=== PATIENT | male | born 1940 | race Caucasian/White ===

== ENCOUNTER 2016-11-04 16:32 | Emergency (ER) | payer MEDICARE ==
[~2016-11-04] VITALS: Ht 180.3 cm; Wt 88.6 kg
[~2016-11-04 16:32] MED LIST: ASCO100089 PO; ASPI-973 PO; CALC-1034 PO; CHOL200047 PO; FINA5TAB9 PO; GLUC-123 PO; LISI-567 PO; LOVA40TA PO; OMEG1CAP25 PO; PROP20TA5 PO; SAW/1TAB2 PO; TERA5CAP6 PO; VANC1VIA13 PO; WARF5TAB9
[2016-11-04 16:34] VITALS: BP 173/116; PULSE 80; RESP 16; O2SAT 98
--- NOTE | 2016-11-04 16:45 | ED.REPORT ---
HPI-Trauma Minor / Fall Date of Service Nov 04, 2016 ED Provider: Nicola Meade MD A 75 year old male on Coumadin with a history of CVA, hypertension, hyperlipidemia, shingles and atrial fibrillation presents to the ED complaining of an abdominal injury. The pt was working with a table saw at home when the wood was thrown back at him by the saw. The corner of the wood hit his abdomen "very hard," resulting in abdominal pain and an immediate bleeding abrasion. He denies other trauma but is concerned that he may have internal bleeding due to his blood thinner use. The pt's INR was last checked one month ago, at which point it was at baseline. Nursing Notes Stated Complaint: WARFARIN/INJURY TO STOMACH Chief Complaint: Multiple Trauma/Fall Nursing Notes Reviewed: Yes Allergies: Coded Allergies: No Known Allergies (Verified , 11/04/16) Scheduled Ascorbic Acid (Vitamin C) 1,000 Mg Tab.chew 1,000 MG PO DAILY Aspirin (Aspirin) 81 Mg Tablet 81 MG PO DAILY Cholecalciferol (Vitamin D3) (Vitamin D3) 2,000 Unit Capsule 2,000 UNIT PO DAILY Finasteride (Finasteride) 5 Mg Tablet 5 MG PO DAILY Gluc/Skip-MSM#2/C/D3/Erik/Born (Epeuuhlicf-Voinascpzku-QDS Tab) 1 Each Tablet 1 TABLET PO DAILY Lisinopril (Lisinopril) 20 Mg Tablet 20 MG PO BID Lovastatin (Lovastatin) 40 Mg Tablet 40 MG PO HS Snyder-3 Fatty Acids/Fish Oil (Snyder 3 Fish Oil Softgel) 1 Each Capsule.dr 1 EACH PO DAILY Propranolol HCl (Propranolol HCl) 20 Mg Tablet 20 MG PO BID Saw/Vit E/Sod Brianna/Lyc/Beta/Pyg (Prostate Health Caplet) 1 Each Tablet 1 TABLET PO DAILY Terazosin (Terazosin) 5 Mg Capsule 5 MG PO DAILY Vancomycin (Vancomycin) 1 Gm Vial 125 MG PO Q6 Warfarin Sodium (Jantoven) 5 Mg Tablet 5 MG DAILY Scheduled PRN Calcium Carbonate/Vitamin D3 (Calcium 600 + Vit D3 400 Tab) 600 Mg-400 Tablet 1 TABLET PO PRN 2-3 times a week General Time Seen by MD: 16:45 Chief Complaint Other (Abdominal injury) Hx Obtained From: Patient Arrived By: Walk-in Onset Occurred: 31 - 45 minutes ago Symptom Duration: Since onset Recent Healthcare: Recent doctor visit Similar Sx Previous: No Past Medical History Past Medical History CVA BPH Rosacea Shingles Denies chronic constipation Reports: Hyperlipidemia, Hypertension, Stroke, Transient ischemic attack Reports: Atrial fibrillation Past Surgical History Denies major surgeries Family History Noncontributory Smoking History Never Smoker Social History Alcohol Use: "Social" Drug Use: Denies drug use Other Social History: Good social support, , Local resident Ambulatory Status Independent Review of Systems Review of Systems Note: abrasion Respiratory: Denies: Non-productive cough, Shortness of breath Musculoskeletal: Denies: Back pain, Extremity pain, Neck pain Skin: Denies Rash Complete sys rev & neg: except as marked. Cardiovascular: Denies: Chest pain GI: Reports: Abdominal pain Physical Exam Initial Vital Signs Vital Signs (First) Date Time Temp Pulse Resp B/P Pulse Ox O2 Delivery O2 Flow Rate FiO2 11/04/16 16:34 36.6 80 16 173/116 98 Room Air Initial VS: Reviewed General/Constitutional: Awake, Alert Neck: Atraumatic, Supple, Full range of motion Head / Eyes: Atraumatic, Normocephalic, PERRL, EOMI ENT: Atraumatic, Airway patent, Mucous membranes moist Respiratory / Chest: Atraumatic, Breath sounds NL, Breath sounds = bilat, No respiratory distress Cardiovascular: Heart rate NL, Regular rhythm, Heart sounds NL Abdomen: Soft, No guarding, No rebound triangle shaped abrasion to the mid abdomen just above the umbilicus some surrounding tenderness no peritoneal signs Back: Atraumatic, Full range of motion Upper Extremity / MS: Atraumatic, Full range of motion Lower Extremity / Pelvis / MS: Atraumatic, Full range of motion Skin: Color NL, Warm, Dry Neurologic: Oriented X3, Speech NL, No motor deficits, No sensory deficits Psychiatric: Affect NL, Mood NL Interpretation & Diagnostics Lab Results Interpretation Result Diagram: 11/04/16 1725 11/04/16 1725 Test 11/04/16 17:25 11/04/16 18:06 White Blood Count 6.8th/mm3 (3.8-10.1) Red Blood Count 5.25mil/mm3 (4.40-5.80) Hemoglobin 16.0g/dL (13.8-17.2) Hematocrit 46.7% (41.0-50.0) Mean Corpuscular Volume 89.0fL (81-100) Mean Corpuscular Hemoglobin 30.5pg (27.0-35.0) Mean Corpuscular Hemoglobin Concent 34.3% (32.0-37.0) Red Cell Distribution Width 14.6% (12.3-15.4) Platelet Count 173bil/L (150-400) Neutrophils (%) (Auto) 55.5% (40-74) Lymphocytes (%) (Auto) 28.0% (14-46) Monocytes (%) (Auto) 11.4% (4-12) Eosinophils (%) (Auto) 4.0% (0-5) Basophils (%) (Auto) 1.0% (0-3) Prothrombin Time 24.2sec (8.1-12.5) Prothromb Time International Ratio 2.23ratio Sodium Level 138mEq/L (134-144) Potassium Level 4.3mEq/L (3.5-5.2) Chloride Level 100mEq/L (97-108) Carbon Dioxide Level 23mmol/L (18-29) Blood Urea Nitrogen 15mg/dL (8-27) Creatinine 0.73mg/dL (0.76-1.27) Estimat Glomerular Filtration Rate 111mL/min (>59) Glucose Level 101mg/dL (60-99) Calcium Level 9.7mg/dL (8.5-10.1) Total Bilirubin 0.8mg/dL (0.0-1.2) Aspartate Amino Transf (AST/SGOT) 27U/L (0-50) Alanine Aminotransferase (ALT/SGPT) 21U/L (0-44) Alkaline Phosphatase 62U/L (25-160) Total Protein 7.6g/dL (6.4-8.4) Albumin 4.2g/dL (3.4-5.0) Hold Heath Top Tube Received (Received) Hold Urine Received (Received) Re-Eval/Medical Decision Med Decision/Clinical Course 75-year-old on warfarin presents after a low mechanism of injury blunt abdominal trauma. Serial abdominal exams are benign without focal rebound guarding or signs of peritonitis, INR is therapeutic, labs are reassuring, the patient's pain has significantly decreased after a short period of observation. Shared decision making is had between the patient, his , and myself: CT scanning is discussed. It is offered, however the patient is feeling better and declines in lieu of home monitoring. Return and follow-up precautions given. Source of Hx: Old records Re-Evaluation/Progress #1: Time of Eval: 17:46 Patient Status: Condition improved Re-Evaluation/Progress Note: Pt rechecked, who is comfortable. The plan for further treatment is discussed. Re-Evaluation/Progress #2: Time of Eval: 18:03 Patient Status: Condition improved Re-Evaluation/Progress Note: Pt rechecked, who is comfortable. His repeat abdominal pain is benign without reboud or guarding. There is no pain beyond the immediate area of abrasion. The pt feels prepared for discharge and does not wish to have a CT scan. The diagnosis and plan for discharge are discussed. The pt understands and agrees with the plan. All questions are addressed at this time. Counseled Regarding: Diagnosis, Lab results, Need for follow-up, When/why to return to ED Discharge & Departure Impression: Primary Impression: Blunt abdominal trauma Encounter type: initial encounter Qualified Code: S39.81XA - Other specified injuries of abdomen, initial encounter Disposition: Home Discharge Condition All VS Reviewed: Yes Condition: Stable Additional Instructions: Thank you for entrusting us with your care. Your labs are reassuring. You have opted to go home prior to CT with the understanding that you will return immediately if your symptoms worsen. Call your primary care physician to arrange a follow up appointment in the next several days. Return to the emergency department if you develop any new or worsening symptoms including bruising, abdominal pain, lightheadedness, dizziness, chest pain, nausea, vomiting, bloody stools or bloody urine. Referrals: Ernesto Panda MD (PCP) Scribe Attestation Portions of this note were transcribed by Dequan Patel. I, Dr. Meade personally performed the history, physical exam and medical decision-making; I reviewed and confirmed the accuracy of the information in the transcribed note. copies to: Ernesto Panda MDNicola Clancy Nov 04, 2016 16:45 DEQUAN PATEL Nov 04, 2016 17:03
[2016-11-04 17:37] LABS: MONOCYTES % (AUTO) 11.4 % (4-12); Mean Corpuscular Hemoglobin 30.5 pg (27.0-35.0); NEUTROPHILS % (AUTO) 55.5 % (40-74); Platelet Count 173 bil/L (150-400)
[2016-11-04 17:47] LABS: INR 2.23 ratio
[2016-11-04 18:45] VITALS: BP 173/102; PULSE 73; RESP 16; O2SAT 98
== END 2016-11-04 18:47 | disposition home or self-care (01) ==
LOC: SED 16:32
DX: S39.81XA Other specified injuries of abdomen, initial encounter (principal); W22.8XXA Striking against or struck by other objects, initial encounter; Y93.89 Activity, other specified; Y92.009 Unspecified place in unspecified non-institutional (private) residence as the place of occurrence of the external cause; Y99.8 Other external cause status; I11.9 Hypertensive heart disease without heart failure; I48.91 Unspecified atrial fibrillation; E78.5 Hyperlipidemia, unspecified; Z86.73 Personal history of transient ischemic attack (TIA), and cerebral infarction without residual deficits; Z79.82 Long term (current) use of aspirin; Z79.01 Long term (current) use of anticoagulants